=== PATIENT | female | born 1975 | race Hispanic/Latino ===

== ENCOUNTER 2020-03-14 16:31 | Emergency (ER) | payer SELFPAY ==
[~2020-03-14] VITALS: Ht 149.9 cm; Wt 59.0 kg
[2020-03-14] MEDS ORDERED: ACETAMINOPHEN 325 MG TAB ONE (17:30)
[2020-03-14] MEDS ORDERED: GUAIFENESIN 600MG/DEXTROMETHORPHAN 30MG TABSR PO ONE (17:30)
[2020-03-15 01:17] VITALS: BP 112/69
[2020-03-15] MEDS ORDERED: GUAIFENESIN 600MG/DEXTROMETHORPHAN 30MG TABSR PO SCH (09:00)
== END 2020-03-14 20:30 | disposition home or self-care (01) ==
LOC: ER 18:06
DX: U07.1 COVID-19 (principal); R05 Cough; R50.9 Fever, unspecified; R06.02 Shortness of breath
CPT/HCPCS: 71045; 93005; 99283

== ENCOUNTER 2024-02-01 02:42 | Emergency (ER) | payer SELFPAY ==
[~2024-02-01] VITALS: Ht 149.9 cm; Wt 59.0 kg
[2024-02-01 02:49] VITALS: TEMP 98.1
[2024-02-01] MEDS: SODIUM CHLORIDE 0.9% 1000ML 1,000 ML IV ONE (03:17)
[2024-02-01 03:24] LABS: BASOPHILS % 0.3 % (0.0-1.0); EOSINOPHILS # (AUTO) 0.2 (0.0-0.4); EOSINOPHILS % 1.1 % (0.0-6.0); HEMATOCRIT 41.3 % (34.2-44.1); HEMOGLOBIN 13.4 g/dL (12.0-16.0); LYMPHOCYTES # (AUTO) 2.3 (1.0-3.2); LYMPHOCYTES % 16.3 % (18.0-39.1); MEAN CORPUSCULAR HGB CONC 32.4 g/dL (31-35); MEAN CORPUSCULAR VOLUME 92.4 fL (81-99); MONOCYTES # (AUTO) 0.9 (0.2-0.8); MONOCYTES % 6.5 % (4.4-11.3); NEUTROPHILS # (AUTO) 10.7 (2.1-6.9); NEUTROPHILS % 75.5 % (38.7-80.0); PLATELET COUNT 323 x10e3/uL (140-360); RED BLOOD COUNT 4.47 x10e6/uL (3.6-5.1)
[2024-02-01 03:35] LABS: COLOR,URINE RED (YELLOW)
[2024-02-01 03:36] LABS: CLARITY,URINE TURBID (CLEAR)
[2024-02-01 03:40] LABS: ALBUMIN 4.1 g/dL (3.5-5.0); ALBUMIN/GLOBULIN RATIO 1.1 (0.8-2.0); ANION GAP 14.6 mmol/L (8-16); BILIRUBIN,TOTAL 0.7 mg/dL (0.2-1.2); CALCIUM 9.6 mg/dL (8.4-10.2); CREATININE, SERUM 0.63 mg/dL (0.57-1.11); POTASSIUM 3.6 mmol/L (3.5-5.1); TOTAL PROTEIN 7.8 g/dL (6.5-8.1)
[2024-02-01] MEDS ORDERED: KETOROLAC TROMETHAMINE 30 MG/ML VIAL ONE (03:41)
[2024-02-01] MEDS: KETOROLAC TROMETHAMINE 30 MG/ML VIAL IV STA (03:46)
[2024-02-01 03:47] LABS: GLUCOSE, URINE NEGATIVE (NEGATIVE); LEUKOCYTE ESTERASE ,URINE LARGE (NEGATIVE); NITRITE,URINE NEGATIVE (NEGATIVE); PH,URINE 6 (5 - 7); PROTEIN,URINE DIPSTICK 2+ (NEGATIVE)
[2024-02-01 03:48] LABS: BACTERIA,URINE MANY /HPF; BILIRUBIN,URINE NEGATIVE (NEGATIVE); EPITHELIAL CELLS,URINE FEW /LPF; KETONES,URINE NEGATIVE (NEGATIVE); RBC,URINE >50 /HPF (0-5); URINE UROBILINOGEN 0.2 mg/dL (0.2 - 1)
[2024-02-01 04:45] VITALS: PULSE 67; RESP 18; O2SAT 99
[2024-02-01] MEDS ORDERED: CEPHALEXIN500 MG PO (04:57)
== END 2024-02-01 05:05 | disposition home or self-care (01) ==
LOC: ER 02:47
DX: N93.8 Other specified abnormal uterine and vaginal bleeding (principal); N39.0 Urinary tract infection, site not specified; N13.30 Unspecified hydronephrosis; N13.4 Hydroureter
CPT/HCPCS: 36415; 74176; 80053; 81001; 84702; 85025; 99284; J1885; J7030